=== PATIENT | female | born 1930 | race Caucasian/White ===

== ENCOUNTER 2017-04-01 16:44 | Inpatient (IN) | payer OTHER ==
[~2017-04-01] VITALS: Ht 154.9 cm; Wt 63.5 kg
[~2017-04-01 16:44] MED LIST: APRESOLINE25 MG PO; ARICEPT5 MG PO; ASPIRIN81 M1 PO; ATIVAN0.5 MG PO; CIPRO250 MG PO; COLACE100 MG PO; FERROUS SULFAT325 MG PO; GLUCAGON EMERGEN1 M1 IM; HUMULIN R U-100 U/ML SUBQ; HUMULIN R100 U/M1 SUBQ; LIPITOR10 MG PO; LOPRESSOR25 MG PO; METOPROLOL25 MG PO; NEPHRO-VITE VIT1 TAB PO; NORVASC5 MG PO; OMEPRAZOLE20 M3 PO; OYSTER SHELL CA1 T11 PO; TYLENOL160 MG/5 M PO; VITAMIN D32000 I1 PO; ZYLOPRIM100 MG PO
--- NOTE | 2017-04-01 16:44 | NUR ---
Patient was BIBA at this time.
[2017-04-01 16:55] VITALS: BP 124/63
[2017-04-01] MEDS ORDERED: ROCALTROL0.25 MCG PO (17:09)
--- NOTE | 2017-04-01 17:09 | NUR ---
Patient being taken to bed 08 via gurney per EMS.
--- NOTE | 2017-04-01 17:15 | NUR ---
Dr. Freedman evaluating patient at bedside.
[2017-04-01] MEDS ORDERED: NACL 0.9% 1,000 ML IV ONE (17:20)
--- NOTE | 2017-04-01 17:20 | NUR ---
86/F BIBA FROM [facility] FOR GENERALIZED WEAKNESS, DECREASED APPETITE FOR THE PAST 3 DAYS AND AN ELEVATED BUN LAB. PATIENT IS AOX1 TO SELF, CONFUSED. PT DENIES PAIN. PT PLACED INTO A GOWN, ONTO TRAINING CONSULTANT, PULSE OXIMETRY AND BLOOD PRESSURE MONITORING. VSS.
--- NOTE | 2017-04-01 17:44 | NUR ---
XRAY at bedside.
--- NOTE | 2017-04-01 18:19 | NUR ---
Pt's brief removed and new one placed.
--- NOTE | 2017-04-01 18:36 | NUR ---
Patient appears to be resting comfortably in bed. Vital Signs within normal limits. Respirations even and unlabored.
--- NOTE | 2017-04-01 18:55 | NUR ---
Patient will be admitted to care of Dr. Delong. Admited to TELE. Will go to room 112-B. Belongings list completed. Report to Kelly LERNER.
[2017-04-01] MEDS ORDERED: ONDANSETRON 4 MG/2 ML VIAL IVP PRN (19:00)
[2017-04-01] MEDS ORDERED: ACETAMINOPHEN 650 MG/20.3 ML UDC PO PRN (19:00)
[2017-04-01] MEDS ORDERED: LORazepam 2 MG/ML VIAL IVP PRN (19:00)
[2017-04-01] MEDS ORDERED: HYDROcodone/APAP 5/325 MG 1 TAB TAB PO PRN (19:00)
[2017-04-01] MEDS ORDERED: DEXTROSE 50% 50 ML SYR IVP PRN (19:00)
[2017-04-01] MEDS ORDERED: ACETAMINOPHEN 325 MG TAB PO PRN (19:00)
--- NOTE | 2017-04-01 19:05 | NUR ---
RECEIVED REPORT FROM ER NURSE. PT WILL BE COMING SOON. WILL GET ROOM READY.
--- NOTE | 2017-04-01 19:20 | NUR ---
Pt transferred to Tele 112-B on patient transport officer via gurministerio accompanied by myself and EMT Yaneth. All belongings sent with patient to room 112-B. IV fluids sent with patient infusing. Pt stable.
--- NOTE | 2017-04-01 19:25 | NUR ---
ENDORSED PT, REPORT ONLY TO WINDOWS LAPTOP TECHNICIAN NURSE. PT NOT ON UNIT OF YET. STILL WAITING.
[2017-04-01] MEDS ORDERED: GLUCAGON 1 MG VIAL IM PRN (19:30)
[2017-04-01] MEDS ORDERED: GLUCAGON 1 MG VIAL IVP PRN (19:30)
--- NOTE | 2017-04-01 19:45 | NUR ---
RECEIVED PT IN STABLE CONDITION FROM AM NURSE. PT IN BED. AWAKE,ALERT BUT CONFUSED. NO ACUTE DISTRESS NOTED. DOESN'T COMMUNICATE AT THIS TIME. ON TELE MONITOR. SKIN INTACT. INCONTINENT . WITH IVF INFUSING ON THE RT HAND #22. CLEAR AND PATENT. ORIENTED TO HOSPITAL ROUTINES. NEED REINFORCEMENT. BED ON LOW POSITION. BED ALARM ON. CALL LIGHT PLACED WITHIN EASY REACH. WILL CONTINUE TO MONITOR.
[2017-04-01 20:00] VITALS: BP 149/67
[2017-04-01] MEDS: BLOOD GLUCOSE MONITORING 1 DEV DEV FS SCH (21:06)
--- NOTE | 2017-04-01 21:06 | NUR ---
BLOOD SUGAR WAS CHECKED RESULT 188. INSULIN COVERAGE NOT GIVEN .PT REFUSED TO EAT. WILL CONTINUE TO MONITOR.
[2017-04-01] MEDS: hydrALAZINE 25 MG TAB PO SCH (21:09)
[2017-04-01] MEDS: DONEPEZIL 10 MG TAB PO SCH (21:10)
[2017-04-01] MEDS: DOCUSATE SODIUM 100 MG GELCAP PO SCH (21:10)
[2017-04-01] MEDS: METOPROLOL 25 MG TAB PO SCH (21:11)
[2017-04-01] MEDS: ATORVASTATIN 20 MG TAB PO SCH (21:11)
[2017-04-01] MEDS: FERROUS SULFATE 325 MG TABEC PO SCH (21:11)
--- NOTE | 2017-04-01 22:30 | NUR ---
HAD SOME APPLE SAUCE AND CRANBERRY JUICE.
[2017-04-02] VITALS: BP 132/63
--- NOTE | 2017-04-02 02:00 | NUR ---
SLEEPING WELL AT THIS TIME. NO DISTRESS NOTED.
[2017-04-02 04:30] VITALS: BP 128/54
[2017-04-02] MEDS: BLOOD GLUCOSE MONITORING 1 DEV DEV FS SCH ×4 (06:20→22:12)
[2017-04-02] MEDS: INSULIN LISPRO SLIDING SCALE 100 UNITS/ML VIAL SUBQ PRN ×3 (06:23→22:14)
--- NOTE | 2017-04-02 06:23 | NUR ---
BLOOD SUGAR RESULT THIS AM 192. INSULIN COVERAGE GIVEN.
--- NOTE | 2017-04-02 06:30 | NUR ---
PT PULLED OUT IV ACCESS TWICE,2ND IV ACCESS ON LT HAND #22. AND THE FIRST ON THE RT HAND #22. NEW IV ACCESS INSERTED BY EDUARDA GREENE ON THE RT AC #22. CLEAR AND PATENT.
--- NOTE | 2017-04-02 06:45 | NUR ---
PT REFUSED TO HAVE BLE SCD MACHINE.
--- NOTE | 2017-04-02 07:44 | NUR ---
ENDORSED PT IN STABLE CONDITION TO AM NURSE.
--- NOTE | 2017-04-02 07:50 | NUR ---
RECEIVED PT FROM PM NURSE. PT IN BED. AWAKE,ALERT,CONFUSED. NO SOB NOTED. ROOM AIR. ON TELE MONITOR. SKIN INTACT.ORIENTED PT HOSPITAL ROUTINES. REINFORCEMENT NEEDED. HO ELEVATED 30 DEGREES. BED IN LOW POSITION. BED ALARM ON. CALL LIGHT PLACED WITHIN REACH. WILL CONTINUE TO MONITOR.
[2017-04-02 08:00] VITALS: BP 140/71
--- NOTE | 2017-04-02 09:20 | NUR ---
DUE MEDS GIVEN. PT TOLERATED WELL.
[2017-04-02] MEDS: ASPIRIN 81 MG TAB.CHEW PO SCH (09:21)
[2017-04-02] MEDS: DOCUSATE SODIUM 100 MG GELCAP PO SCH ×2 (09:21→22:05)
[2017-04-02] MEDS: CHOLECALCIFEROL 1,000 IU TAB PO SCH ×2 (09:22→22:07)
[2017-04-02] MEDS: hydrALAZINE 25 MG TAB PO SCH ×2 (09:22→22:05)
[2017-04-02] MEDS: CALCIUM CARB/VIT-D 500 MG/200 IU 1 TAB PO SCH ×2 (09:22→22:05)
[2017-04-02] MEDS: VIT-B COMP/VIT-C/FOLIC ACID 1 TAB PO SCH (09:23)
[2017-04-02] MEDS: ALLOPURINOL 100 MG TAB PO SCH (09:23)
[2017-04-02] MEDS: METOPROLOL 25 MG TAB PO SCH ×2 (09:23→22:06)
[2017-04-02] MEDS: FERROUS SULFATE 325 MG TABEC PO SCH ×2 (09:23→22:05)
[2017-04-02] MEDS: CALCITRIOL 0.25 MCG CAPLF PO SCH (09:23)
[2017-04-02] MEDS: amLODIPine 5 MG TAB PO SCH (09:24)
--- NOTE | 2017-04-02 10:16 | NUR ---
PATIENT HAS BEEN SCREENED AND CATEGORIZED HIGH NUTRITION RISK. PATIENT WILL BE SEEN WITHIN 1-2 DAYS OF ADMISSION. 04/02/17-04/03/[address]
[2017-04-02 12:00] VITALS: BP 122/60
--- NOTE | 2017-04-02 15:01 | NUR ---
04/02/17 RD INITIAL ASSESSMENT COMPLETED PLEASE REFER TO NUTRITION ASSESSMENT UNDER CARE ACTIVITY FOR ESTIMATED NUTRITIONAL NEEDS. 1. CONTINUE 2 GM NA, 60 GM CCHO DIET 2. CONSIDER TEXTURE MODIFICATION, MECHANICAL SOFT 3. CONSIDER ORAL NUTRITION SUPPLEMENT, NOVASOURCE RENAL TID 4. RD TO FOLLOW-UP 2-3 DAYS; HIGH RISK RAMANA ARAUJO, RD
[2017-04-02 16:00] VITALS: BP 140/60
--- NOTE | 2017-04-02 16:29 | NUR ---
DR. GEORGE, ЕЛЕНА AWARE PT'S CRITICAL LAB REPORT BUN 118, CREAT 3.10,
--- NOTE | 2017-04-02 19:15 | NUR ---
REPORT GIVEN TO EDUARDA DAVILA. VSS AT THIS TIME.
--- NOTE | 2017-04-02 19:45 | NUR ---
RECEIVED PT IN STABLE CONDITION FROM AM NURSE. AWAKE BUT CONFUSED. ON M/S. NO ACUTE DISTRESS NOTED. IV ACCESS OUT. WILL NEED TO START A NEW IV ACCESS. ON BED REST DUE TO GEN WEAKNESS. INCONTINENT OF URINE AND STOOL. NEED UA.C/S . WILL HAVE TO DO STRAIGHT CATH TO COLLECT URINE. BED ON LOW POSITION. CALL LIGHT PLACED WITHIN EASY REACH. FREQUENT ROUNDS NEEDED. WILL CONTINUE TO MONITOR.
[2017-04-02 20:30] VITALS: BP 143/59
[2017-04-02] MEDS ORDERED: LEVOFLOXACIN 500 MG TAB PO ONE (21:30)
--- NOTE | 2017-04-02 21:30 | NUR ---
FOUND BAND AID PLACED ON LT ARM ON THE FLOOR , LT ARM WITH SKIN TEAR , CLEANSED WITH NS THEN COVER WITH OP SITE DRESSING.
--- NOTE | 2017-04-02 22:00 | NUR ---
STRAIGHT CATH DONE . PROCEDURE TOLERATED WELL. OBTAINED URINE SPECIMEN AND SEND TO LAB.
[2017-04-02] MEDS: DONEPEZIL 10 MG TAB PO SCH (22:07)
[2017-04-02] MEDS: ATORVASTATIN 20 MG TAB PO SCH (22:07)
--- NOTE | 2017-04-02 23:00 | NUR ---
UNABLE TO INSERT ANY IV ACCESS ON THE PT AFTER SEVERAL TIMES. PAGED DR. ARIEL Levi MADE AWARE. ORDERED FOR PICC LINE INSERTION.
[2017-04-03] VITALS: BP 139/67
--- NOTE | 2017-04-03 02:00 | NUR ---
SLEEPING AT THIS TIME. NO S/S OF NAY DISCOMFORT NOR PAIN NOTED.
--- NOTE | 2017-04-03 04:00 | NUR ---
STILL REMAINS CONFUSED. FREQUENT CHECKED NEEDED.
[2017-04-03] MEDS: BLOOD GLUCOSE MONITORING 1 DEV DEV FS SCH ×4 (05:53→21:43)
[2017-04-03] MEDS: INSULIN LISPRO SLIDING SCALE 100 UNITS/ML VIAL SUBQ PRN ×3 (05:54→21:45)
--- NOTE | 2017-04-03 05:54 | NUR ---
BLOOD SUGAR WAS 153, COVERED WITH 2 UNIT OF HUMALOG SUBQ RIGHT DELTOID. TOLERATED WELL.
--- NOTE | 2017-04-03 06:49 | NUR ---
DR. SWANN PAGED FOR UA 4+ BACTERIA. CALLED BACK,MADE AWARE NO ORDER MADE. WILL SEE PT TODAY.
--- NOTE | 2017-04-03 06:52 | NUR ---
CALLED JULIETAPanfilo PIERCEA(NIECE)PH [phone] AND [phone] AND TO KAITLYNN DECKER, DAUGHTER PH [phone]. NO ANSWER BUT LEFT MESSAGE TO GET CONSENT FOR PICC LINE INSERTION. WILL WAIT FOR CALL BACK.
--- NOTE | 2017-04-03 07:30 | NUR ---
REPORT RECIVED FROM LUMP ROLLER, PT AWAKE ALERT, OX1 AT BASELINE, RESP EVEN UNLABORED ON ROOM AIR, NO IV ACCESS AT THIS TIME, MD AWARE, PLAN FOR PICC INSERTION TODAY PER REPORT, SKIN WARM DRY COLOR WNL, DIAPER CHANGED PERICARE DONE BY MANAGER HOSPITALITY, REPOSITIONED FOR COMFORT, SITTING UP FOR BREAKFAST, CALL SANTIAGO WITHIN REACH, SIDE RAILS UP X2, BED LOCKED IN LOW POSITION, ALL SAFETY MEASURES IN PLACE, WILL CONTINUE TO MONITOR
--- NOTE | 2017-04-03 07:40 | NUR ---
ENDORSED PT IN STABLE CONDITION TO AM NURSE.
[2017-04-03 08:00] VITALS: BP 127/46
[2017-04-03] MEDS: CHOLECALCIFEROL 1,000 IU TAB PO SCH ×4 (08:45→21:00)
[2017-04-03] MEDS: ALLOPURINOL 100 MG TAB PO SCH (08:45)
[2017-04-03] MEDS: METOPROLOL 25 MG TAB PO SCH ×3 (08:45→21:00)
[2017-04-03] MEDS: VIT-B COMP/VIT-C/FOLIC ACID 1 TAB PO SCH (08:46)
[2017-04-03] MEDS: ASPIRIN 81 MG TAB.CHEW PO SCH (08:46)
[2017-04-03] MEDS: CALCIUM CARB/VIT-D 500 MG/200 IU 1 TAB PO SCH ×3 (08:46→21:00)
[2017-04-03] MEDS: DOCUSATE SODIUM 100 MG GELCAP PO SCH ×4 (08:46→21:00)
[2017-04-03] MEDS: FERROUS SULFATE 325 MG TABEC PO SCH ×4 (08:46→21:00)
[2017-04-03] MEDS: CALCITRIOL 0.25 MCG CAPLF PO SCH (09:00)
[2017-04-03] MEDS: amLODIPine 5 MG TAB PO SCH (09:00)
[2017-04-03] MEDS: hydrALAZINE 25 MG TAB PO SCH ×3 (09:00→21:00)
--- NOTE | 2017-04-03 09:09 | NUR ---
PT TOOK ONLY SOME SCHEDULED MEDS WITH APPLESAUCE, SPIT UP OTHERS AND REFUSED.
[2017-04-03 12:34] VITALS: BP 122/60
--- NOTE | 2017-04-03 14:19 | NUR ---
SS NOTE: PER OVIDIO FROM [facility] ([phone]), PT CAN GO TO ROOM 6A UNDER DR. ANDREA ANYTIME UPON DISCHARGE TOMORROW.
--- NOTE | 2017-04-03 14:27 | NUR ---
WHEN PATIENT DISCHARGED, PER MILAN FROM [facility] AUTH FOR PREMIER GARCIA IS [id number]
[2017-04-03] MEDS ORDERED: NACL 0.9% 1,000 ML IV SCH (15:00)
[2017-04-03 15:52] VITALS: BP 122/60
--- NOTE | 2017-04-03 15:54 | NUR ---
PT REMOVED IV AGAIN, REPLACED TO RIGTHT FA 22G, NS STARTED, FOLLEY PLACED, DRAINIGN URINE WELL, MITTENS PLACED FOR PREVENTION OF LINE PULLING, PT IRA WELL, BED LOCKED IN LOW POSITION, SIDE RAILS UP X2, CALL PAMELA MIN, WILL CONTINUE TO MONITOR
--- NOTE | 2017-04-03 18:20 | NUR ---
PT CONTINUES TO TAKE OFF MITTENS AND PULLS ON LINES, RIGHT FA IV INFILTRATED, NEW IV STARTED TO LEFT UPPER ARM 22G, IRA WELL, PT NOW ON 1:1 SAFETY WATCH. BED LOCKED IN LOW POSITION, SIDE RAILS UP X2, WILL CONTINUE TO MONTIOR
--- NOTE | 2017-04-03 19:30 | NUR ---
REPORT GIVEN TO MEDICAL PARASITOLOGIST PT IN STABLE CONDITION
--- NOTE | 2017-04-03 19:30 | NUR ---
RECEIVED REPORT FROM DAY SHIFT NURSE. PT IS AWAKE AND CONFUSED, SITTER AT BEDSIDE, FLACC-0. ON ROOM AIR, NO S/S OF RESPIRATORY DISTRESS/DISCOMFORT NOTED. IV SITE TO RIGHT UPPER ARM # 22, INFUSING WELL, INTACT AND PATENT. GALINDO CATHETER IN PLACED. PLAN OF CARE DISCUSSED, REENFORCEMENT NEEDED. SAFETY MEASURES CHECKED, CALL LIGHT WITHIN REACH. WILL CONTINUE TO MONITOR.
[2017-04-03] MEDS ORDERED: LEVOFLOXACIN 250 MG/D5 PREMIX 50 ML IV SCH (19:40)
[2017-04-03] MEDS: ATORVASTATIN 20 MG TAB PO SCH ×2 (20:22→21:00)
[2017-04-03] MEDS: DONEPEZIL 10 MG TAB PO SCH ×2 (20:23→21:00)
--- NOTE | 2017-04-03 21:00 | NUR ---
PT REFUSED TO TAKE PO MEDS. PROVIDED HEALTH TEACHING, S/E AND BENEFITS OF MEDS, REFUSED. WILL CONTINUE TO MONITOR.
[2017-04-04] VITALS: BP 119/58
--- NOTE | 2017-04-04 | NUR ---
PT AWAKE, SITTER AT BEDSIDE. V/S CHECKED AND STABLE. CALL LIGHT WITHIN REACH.
--- NOTE | 2017-04-04 02:20 | NUR ---
PT AWAKE. SITTER AT BEDSIDE. NO S/S OF DISTRESS. BREATHING EVEN AND UNLABORED. CALL LIGHT WITHIN REACH.
--- NOTE | 2017-04-04 04:39 | NUR ---
EYES CLOSED, RESTING QUIETLY, BREATHING EVEN AND UNLABORED. CALL LIGHT WITHIN REACH.
--- NOTE | 2017-04-04 05:00 | NUR ---
PT AWAKE. PULLED HER IV OUT. CANNULA INTACT. APPLIED PRESSURE AND SECURED WITH TAPE. WILL INSERT A NEW IV.
--- NOTE | 2017-04-04 07:15 | NUR ---
ENDORSED PT TO DAY SHIFT NURSE. PT REMAINS IN STABLE CONDITION.
--- NOTE | 2017-04-04 07:30 | NUR ---
REPORT RECEIVED FROM METAL BUMPER NURSE, PT AWAKE ALERT, RESP EVEN UNLABORED ON ROOM AIR IN NAD, SKIN WAMR DRY COLOR WNL, 22G IV TO RIGHT UPPER ARM, SITE CLEAR, PT WITH MITTENS TO PREVENT PULING LINES, GALINDO DRAINING, PT ON 1:1 SAFETY WATCH, VSS, WILL CONTINUE TO MONITOR
[2017-04-04] MEDS: BLOOD GLUCOSE MONITORING 1 DEV DEV FS SCH ×4 (07:36→21:27)
[2017-04-04 08:00] VITALS: BP 142/70
[2017-04-04] MEDS: METOPROLOL 25 MG TAB PO SCH ×2 (08:51→20:59)
[2017-04-04] MEDS: amLODIPine 5 MG TAB PO SCH (08:52)
[2017-04-04] MEDS: hydrALAZINE 25 MG TAB PO SCH ×2 (08:52→21:00)
[2017-04-04] MEDS: VIT-B COMP/VIT-C/FOLIC ACID 1 TAB PO SCH (09:00)
[2017-04-04] MEDS: CHOLECALCIFEROL 1,000 IU TAB PO SCH ×2 (09:00→20:59)
[2017-04-04] MEDS: DOCUSATE SODIUM 100 MG GELCAP PO SCH ×2 (09:00→21:00)
[2017-04-04] MEDS: FERROUS SULFATE 325 MG TABEC PO SCH ×2 (09:00→21:01)
[2017-04-04] MEDS: CALCITRIOL 0.25 MCG CAPLF PO SCH (09:00)
[2017-04-04] MEDS: ASPIRIN 81 MG TAB.CHEW PO SCH (09:00)
[2017-04-04] MEDS: CALCIUM CARB/VIT-D 500 MG/200 IU 1 TAB PO SCH ×2 (09:00→21:00)
[2017-04-04] MEDS: ALLOPURINOL 100 MG TAB PO SCH (09:00)
--- NOTE | 2017-04-04 09:08 | NUR ---
PT REFUSES TO EAT OR TAKE ANY MEDS, PT AGGITATED, SLAPPS FOOD OUT OF HER WAY, WILL ATTEMPT TO MEDICATE AT LATER TIME
--- NOTE | 2017-04-04 10:05 | NUR ---
DR SWANN TO BEDSIDE FOR EVAL
--- NOTE | 2017-04-04 11:45 | NUR ---
SPONGE BATH AND WIPE DOWN DONE, LINENS CHANGED, PERICARE DONE, PT FIGHTS WITH SWINGING ARMS.
--- NOTE | 2017-04-04 12:30 | NUR ---
LUNCH OFFERED TO PT, PT REFUSES TO EAT, PUSHES FOOD OR DRINKS AWAY, SWINGS ARMS AROUND AT NURSES WITH CARE, PT CALM AND QUIET WITH UNLABORED RESP WHEN LEFT ALONE, 1:1 SITTER AT BEDSIDE, IVF CONTINUES SITE INTACT, GALINDO DRAINING WITHOUT PROBLEM, WILL CONTINUE TO MONITOR
--- NOTE | 2017-04-04 13:57 | NUR ---
04/04/17 RD FOLLOW UP COMPLETED REFER TO NUTRITION PROGRESS NOTE UNDER CARE ACTIVITY FOR ESTIMATED NEEDS. RD RECOMMENDATIONS: 1. CONTINUE MECHANICAL SOFT, 60 GM CCHO DIET +NOVASOURCE RENAL TID TOLERATED. 2. PLEASE CONSULT RD IF PO INTAKES DO NOT IMPROVE AND IF TF FALLS WITHIN GOALS OF CARE. 3. CONTINUE TO ENCOURAGE PO INTAKES PRN. 4. RD TO FOLLOW-UP 2-3 DAYS; HIGH RISK DASHA CHAUDHARY, RD
--- NOTE | 2017-04-04 14:43 | NUR ---
PT SLEEPING QUIETLY IN NAD, RESP EVEN UNLABORED ON ROOM AIR IN NAD, IVF INFUSING WELL, SITE CLEAR, RETAPED FOR REINFORCEMENT, REMAINS ON 1:1 WATCH, WILL CONTINUE TO MONITOR
[2017-04-04 16:00] VITALS: BP 115/55
[2017-04-04] MEDS: INSULIN LISPRO SLIDING SCALE 100 UNITS/ML VIAL SUBQ PRN (17:22)
--- NOTE | 2017-04-04 17:30 | NUR ---
PT RESTING QUIETLY RESP EVEN UNLABORED ON ROOM AIR IN NAD, SKIN WARM DRY COLOR WNL, CALM WHEN LEFT ALONE, HITS AND FIGHT WITH CARE, IVF CONTINUE TO INFUSE WELL, SITE CLEAR, GALINDO DRAINING YELLOW URINE, MITTENS TAKEN OFF AND ON AGAIN, PT REMAINS ON 1:1 WATCH FOR SAFETY, WILL CONTINUE TO MONITOR.
--- NOTE | 2017-04-04 19:26 | NUR ---
REPORT GIVEN TO NIGHT NURSE, PT IN STABLE CONDITION.
--- NOTE | 2017-04-04 19:30 | NUR ---
RECEIVED FROM AM RN IN BED AWAKE WITH SITTER 1:1. CONFUSED AND COMBATIVE AGAINST PERSONAL CARE. TENDENCY TO STRIKE CARE GIVERS. DX. OF ACUTE RENAL FAILURE. WITH RIGHT UPPER ARM #22 IVF. HX. DEMENTIA AND ALZEIMER'S DSE. NEEDS ANTICIPATED AND WILL BE MET. TOTAL CARE. AFEBRILE.
[2017-04-04] MEDS: DONEPEZIL 10 MG TAB PO SCH (20:59)
[2017-04-04] MEDS ORDERED: LEVOFLOXACIN 250 MG TAB PO SCH (21:00)
[2017-04-04] MEDS: ATORVASTATIN 20 MG TAB PO SCH (21:00)
--- NOTE | 2017-04-04 23:06 | NUR ---
SLEEPING AT THIS TIME. SITTER 1:1. NO SOB. NO RESTLESSNESS NOTED. FLACC 0-
[2017-04-05 00:43] VITALS: BP 129/60
--- NOTE | 2017-04-05 02:10 | NUR ---
PT. AWAKE AT THIS TIME. PT, REFUSED TO BE RE-POSITIONED. ENCOURAGED TO STAY ON TURNED SIDE.
--- NOTE | 2017-04-05 04:39 | NUR ---
PT. SLEEPING IN AND OUT. MOST OF THE SHIFT QUIET AND CALM. SITTER 1:1.
[2017-04-05] MEDS: BLOOD GLUCOSE MONITORING 1 DEV DEV FS SCH ×4 (05:15→21:37)
--- NOTE | 2017-04-05 07:09 | NUR ---
ENDORSED TO THE NEXT RN FOR CONTINUITY OF CARE. WAKES UP WHEN TOUCHED. LATEST BLOOD SUGAR PER FINGERSTICK 124 MG/DL. NEEDS ANTICIPATED AND MET. TOTAL CARE. SITTER 1:1. NO SOB THIS SHIFT.
--- NOTE | 2017-04-05 07:10 | NUR ---
RECEIVED PT IN BED. ASLEEP. AROUSABLE TO VOICE. ALERT ORIENTED X1, CONFUSED. NO SOB NOTED. DENIES ANY PAIN OR DISCOMFORT AT THIS TIME. PT BEDBOUND WITH 1 ON [address] GALIND[address]TER [address] PL[address]. INTACT PATENT. DRAINING CLEAR YELLOW URINE. SAFETY PRECAUTION IN PLACE. CALL LIGHT WITHIN REACH.
[2017-04-05 08:00] VITALS: BP 137/53
--- NOTE | 2017-04-05 08:35 | NUR ---
PT FIGHTS WHEN TAKING VITAL SIGNS. REFUSES TO BE AWAKEN FOR BREAKFAST AND REFUSES TO BE AWAKEN FOR MEDICATION AT THIS TIME.
[2017-04-05] MEDS: hydrALAZINE 25 MG TAB PO SCH ×2 (09:00→21:00)
[2017-04-05] MEDS: CALCIUM CARB/VIT-D 500 MG/200 IU 1 TAB PO SCH ×2 (09:00→21:00)
[2017-04-05] MEDS: CALCITRIOL 0.25 MCG CAPLF PO SCH (09:00)
[2017-04-05] MEDS: VIT-B COMP/VIT-C/FOLIC ACID 1 TAB PO SCH (09:00)
[2017-04-05] MEDS: FERROUS SULFATE 325 MG TABEC PO SCH ×2 (09:00→21:00)
[2017-04-05] MEDS: amLODIPine 5 MG TAB PO SCH (09:00)
[2017-04-05] MEDS: METOPROLOL 25 MG TAB PO SCH ×2 (09:00→21:00)
[2017-04-05] MEDS: ALLOPURINOL 100 MG TAB PO SCH (09:00)
[2017-04-05] MEDS: CHOLECALCIFEROL 1,000 IU TAB PO SCH ×2 (09:00→21:00)
[2017-04-05] MEDS: DOCUSATE SODIUM 100 MG GELCAP PO SCH ×2 (09:00→21:00)
[2017-04-05] MEDS: ASPIRIN 81 MG TAB.CHEW PO SCH (09:00)
--- NOTE | 2017-04-05 09:45 | NUR ---
PER RESIDENTIAL PROPERTY CONSULTANT REPORT PT REFUSES TO EAT, OFFERED 3X. PT CLOSES HER MOUTH. PT REFUSES TO TAKE HER MEDS WELL.
[2017-04-05 16:00] VITALS: BP 139/64
[2017-04-05] MEDS: NACL 0.45% 1,000 ML IV SCH (19:05)
--- NOTE | 2017-04-05 19:07 | NUR ---
DR DOTSON CAME TO VISIT PT. MADE AWARE THAT PT HAS BEEN REFUSING HER MEDS AND HER FOOD. MADE NEW ORDER FOR IV FLUIDS.
--- NOTE | 2017-04-05 19:30 | NUR ---
PT ASLEEP IN BED. AROUSABLE TO VOICE, ENDORSED TO CLINICAL NURSE MANAGER FOR CONTINUITY OF CARE. ENDORSED TO CHANGE IV FLUIDS PER MD ORDER SINCE ORDER HAS NOT BEEN TRANSCRIBED YET TO EMAR. LATEST BLOOD SUGAR 170 MG/DL, COVERAGE HELD DUE TO PT NOT EATING, DR. DOTSON AWARE. KEPT CLEAN DRY AND COMFORTABLE, NEEDS ATTENDED. ENDORSED ON STABLE CONDITION.
--- NOTE | 2017-04-05 19:30 | NUR ---
Patient's Plan of Care was discussed and reviewed with MECHANICAL DESIGN DRAFTER: RASHAD
--- NOTE | 2017-04-05 19:31 | NUR ---
RECD. RESTING IN BED, AWAKE, A/OX1, CONFUSED. RESPIRATION EVEN AND UNLABORED. IV OF NS AT 50 ML/HR INFUSING. UNCOOPERATIVE, TELLS NURSES TO GO AWAY. GETS COMBATIVE WHEN TAKING VITAL SIGNS. ON BILATERAL LEG SEQUENTIALS. SAFETY MEASURES ENFORCED. REORIENTED TO HOSPITAL SETTING, NEEDS REINFORCEMENT. F/C PATENT DRAINING CLEAR YELLOW URINE. NO APPEARANCE OF PAIN/DISCOMFORT NOTED.
[2017-04-05 20:00] VITALS: BP 137/69
--- NOTE | 2017-04-05 20:59 | NUR ---
IV PULLED OUT, PATIENT COMBATIVE, TRIES TO HIT AND KICK NURSES. REORIENTED TO HOSPITAL SETTING. STILL UNCOOPERATIVE. REFUSED ALL HER NIGHT MEDICATIONS, AND REFUSED TO EAT DINNER AND SNACK FOR THE NIGHT.
[2017-04-05] MEDS: DONEPEZIL 10 MG TAB PO SCH (21:00)
[2017-04-05] MEDS: ATORVASTATIN 20 MG TAB PO SCH (21:00)
--- NOTE | 2017-04-05 21:37 | NUR ---
BS - 158, NO COVERAGE, PATIENT NOT EATING AND VERY UNCOOPERATIVE, HITTING NURSES THAT C0MES NEAR.
--- NOTE | 2017-04-05 22:43 | NUR ---
RESTING COMFORTABLY SLEEPING IN BED.
--- NOTE | 2017-04-06 03:00 | NUR ---
STILL HITS NURSES WHEN MOVED. NEW IV LINE INSERTED BY CHARGE NURSE NEIL AT THE RIGHT UPPER ARM, G22.
[2017-04-06] MEDS: NACL 0.45% 1,000 ML IV SCH (04:28)
--- NOTE | 2017-04-06 05:00 | NUR ---
RESTING IN BED, OCCASIONALLY HITS WHEN CLEANSED AND REPOSITIONED BY VISUAL BASIC PROGRAMMER. SAFETY MAINTAINED DURING SHIFT.
[2017-04-06] MEDS: BLOOD GLUCOSE MONITORING 1 DEV DEV FS SCH ×2 (06:13→12:06)
--- NOTE | 2017-04-06 07:24 | NUR ---
RECEIVED CRITICAL VALUE FROM LAB: CREATININE 2.8, BUN 70. WILL NOTIFY
--- NOTE | 2017-04-06 07:25 | NUR ---
SLEEPING IN BED, RESPIRATION EVEN AND UNLABORED. ENDORSED TO DA/LUCILLE, RNs FOR CONTINUITY OF CARE.
--- NOTE | 2017-04-06 07:26 | NUR ---
RECEIVED REPORT FROM CHIEF METEOROLOGIST NURSE AT BEDSIDE. PT IS SLEEPING. UPDATED THE BOARD AND WILL INTRODUCE OURSELVES LATER. PT HAS IV ON R UPPER ARM 22 G GETTING 1/2NS@50ML/HR. SHE HAS A GALINDO DRAINING 200ML OF CLEAR YELLOW URINE. PT HAS SOFT MITTENS ON BOTH HANDS. WILL MONITOR FREQUENTLY.
[2017-04-06 08:00] VITALS: BP 93/68
[2017-04-06] MEDS: hydrALAZINE 25 MG TAB PO SCH (09:00)
[2017-04-06] MEDS: METOPROLOL 25 MG TAB PO SCH (09:00)
[2017-04-06] MEDS: amLODIPine 5 MG TAB PO SCH (09:00)
[2017-04-06] MEDS ORDERED: POTASSIUM PHOSPHATE 15 MM in NACL 0.9% 250 ML IV ONE (09:25)
[2017-04-06] MEDS: CHOLECALCIFEROL 1,000 IU TAB PO SCH (09:39)
[2017-04-06] MEDS: ASPIRIN 81 MG TAB.CHEW PO SCH (09:40)
[2017-04-06] MEDS: DOCUSATE SODIUM 100 MG GELCAP PO SCH (09:40)
[2017-04-06] MEDS: ALLOPURINOL 100 MG TAB PO SCH (09:40)
[2017-04-06] MEDS: CALCIUM CARB/VIT-D 500 MG/200 IU 1 TAB PO SCH (09:40)
[2017-04-06] MEDS: VIT-B COMP/VIT-C/FOLIC ACID 1 TAB PO SCH (09:40)
[2017-04-06] MEDS: CALCITRIOL 0.25 MCG CAPLF PO SCH (09:40)
[2017-04-06] MEDS: FERROUS SULFATE 325 MG TABEC PO SCH (09:41)
--- NOTE | 2017-04-06 09:45 | NUR ---
ADMINISTERED MEDS. CRUSHED AND MIXED WITH VANILLA PUDDING. PT TOLERATED WELL. HELD ALL BP MEDS D/T DECREASED BP. REMOVED MITTENS. PT MORE ALERT. ACT TUTOR HERE TO CHANGE HER GOWN AND LINENS. WILL CONTINUE TO MONITOR PT.
--- NOTE | 2017-04-06 09:55 | NUR ---
SPOKE TO DR. GEORGE REGARDING K-RIDER ORDER, REPORTED TO DR THAT BOTH POTASSIUM AND PHOSPHORUS LEVELS WERE NORMAL BUT MG LEVEL WAS 1.2. CANCELLED ORDER OF K-RIDER AND ORDERED MAGNESIUM RIDER. WILL CARRY OUT THE ORDER. Addendum: 04/06/17 at 1554 by Kelly Jose RN REPORTED CRITICAL RESULTS OF BUN AND CREATININE. MD SOARES.
--- NOTE | 2017-04-06 10:50 | NUR ---
LINH, CHARGE NURSE STARTED A NEW IV. IV ON L FA 22G. NS FLOWING AT 50ML/HR. PT TOLERATED WELL.
--- NOTE | 2017-04-06 11:20 | NUR ---
PT SLEEPING SOUNDLY. NO SIGNS OF DISTRESS. WILL CONTINUE TO MONITOR PT.
[2017-04-06] MEDS ORDERED: MAG SULF 2000 MG/WATER PREMIX 50 ML IV ONE (12:00)
[2017-04-06] MEDS: INSULIN LISPRO SLIDING SCALE 100 UNITS/ML VIAL SUBQ PRN (12:14)
--- NOTE | 2017-04-06 12:19 | NUR ---
D/C'D GALINDO CATH PER MD REQUEST. PT TOLERATED WELL. 300ML OF CLEAR YELLOW URINE IN BAG.
--- NOTE | 2017-04-06 14:23 | NUR ---
transport arranged to go back to [facility] room 6 A. via [facility].
[2017-04-06 14:33] VITALS: BP 93/68
--- NOTE | 2017-04-06 15:00 | NUR ---
CALLED [facility], GAVE REPORT TO EDUARDA MOONEY. REMOVED IV. CANNULA INTACT. NO BLEEDING NOTED. PT TOLERATED WELL. REMOVED ALL ID BANDS. CHANGED HER INTO TRANSPORT GOWN AND BLANKETS. NOTIFIED DAUGHTER OF TRANSFER. GATHERED PERSONAL BELONGINGS, NOTIFIED PT OF TRANSFER.
--- NOTE | 2017-04-06 15:05 | NUR ---
BEA WHEELED PT OUT IN [facility]. PT TOOK ALL PERSONAL BELONGINGS. PT IN STABLE CONDITION.
== END 2017-04-06 15:05 | DRG 872 ==
LOC: MED 16:44 → MTU 18:48
PROVIDERS: ADMIT Preventive Medicine Preventive Medicine/Occupational Environmental Medicine; ATTEND Preventive Medicine Preventive Medicine/Occupational Environmental Medicine
DX: A41.9 Sepsis, unspecified organism (principal); N39.0 Urinary tract infection, site not specified; N17.9 Acute kidney failure, unspecified; N18.4 Chronic kidney disease, stage 4 (severe); E87.0 Hyperosmolality and hypernatremia; D64.9 Anemia, unspecified; E11.65 Type 2 diabetes mellitus with hyperglycemia; E11.22 Type 2 diabetes mellitus with diabetic chronic kidney disease; N20.0 Calculus of kidney; N28.1 Cyst of kidney, acquired; F03.90 Unspecified dementia, unspecified severity, without behavioral disturbance, psychotic disturbance, mood disturbance, and anxiety; K21.9 Gastro-esophageal reflux disease without esophagitis; E78.5 Hyperlipidemia, unspecified; M19.90 Unspecified osteoarthritis, unspecified site; I13.10 Hypertensive heart and chronic kidney disease without heart failure, with stage 1 through stage 4 chronic kidney disease, or unspecified chronic kidney disease; M10.9 Gout, unspecified; E11.21 Type 2 diabetes mellitus with diabetic nephropathy; E78.00 Pure hypercholesterolemia, unspecified; E83.39 Other disorders of phosphorus metabolism; E86.1 Hypovolemia; K59.00 Constipation, unspecified; Z79.82 Long term (current) use of aspirin; Z79.4 Long term (current) use of insulin; Z79.899 Other long term (current) drug therapy